=== PATIENT | female | born 1960 | race Caucasian/White ===

== ENCOUNTER 2018-08-18 13:49 | Emergency (ER) | payer OTHER ==
[~2018-08-18] VITALS: Ht 152.4 cm; Wt 84.4 kg
[~2018-08-18 13:49] MED LIST: ASMANEX0.24 G1; CELESTONE0.6 MG/5 M; DOLOGESIC CAPLE1 TAB; HYZAAR 100-121 UDTAB; PHENERGAN25 MG; PREVACID30 MG; PROTONIX40 MG; PROVENTIL S1 ML/5 MG; PROVENTIL2.5 MG/3 M; RELAGESIC TABLE1 TAB; TUSNEL LIQUID178 ML; ZANTAC300 MG; ZYRTEC5 MG
[2018-08-18] MEDS ORDERED: LISINOPRIL-HCT1 EAC1 (14:17)
[2018-08-18] MEDS ORDERED: VENTOLIN HFA18 GM (14:17)
[2018-08-18] MEDS ORDERED: NORVASC10 MG (14:17)
== END 2018-08-18 15:20 | disposition home or self-care (01) ==
LOC: ER 13:49
DX: S40.011A Contusion of right shoulder, initial encounter (principal); W18.39XA Other fall on same level, initial encounter; Y93.89 Activity, other specified; Y92.098 Other place in other non-institutional residence as the place of occurrence of the external cause; Y99.8 Other external cause status

== ENCOUNTER 2021-08-20 12:09 | Outpatient (CLI) | payer OTHER ==
[~2021-08-20 12:09] MED LIST changes: +LISINOPRIL-HCT1 EAC1; +NORVASC10 MG; +VENTOLIN HFA18 GM
== END 2021-08-20 12:19 | disposition home or self-care (01) ==
LOC: MAMO-SONO 12:09
PROVIDERS: ATTEND Specialist
DX: N60.11 Diffuse cystic mastopathy of right breast (principal); N60.12 Diffuse cystic mastopathy of left breast; R92.0 Mammographic microcalcification found on diagnostic imaging of breast; Z12.31 Encounter for screening mammogram for malignant neoplasm of breast

== ENCOUNTER 2022-01-16 08:18 | Outpatient (CLI) | payer OTHER | END 2022-01-16 08:20 | disposition home or self-care (01) | LOC: TOM 08:18 | DX: Z12.11 Encounter for screening for malignant neoplasm of colon (principal) ==

== ENCOUNTER 2022-12-17 14:14 | Emergency (ER) | payer OTHER ==
[~2022-12-17] VITALS: Ht 152.4 cm; Wt 83.9 kg
[2022-12-17] MEDS ORDERED: SYNJARDY 12.5-1 EACH PO (14:31)
[2022-12-17] MEDS ORDERED: CAMBIA50 MG PO (14:31)
[2022-12-17] MEDS ORDERED: PROTONIX20 MG PO (14:31)
[2022-12-17] MEDS ORDERED: ANASTROZOLE1 MG PO (14:32)
[2022-12-17] MEDS ORDERED: IRBESARTAN150 MG PO (14:33)
[2022-12-17] MEDS ORDERED: XOPENEX CO1.25 MG/0. (14:34)
== END 2022-12-17 17:19 | disposition home or self-care (01) ==
LOC: ER 14:14
DX: J45.909 Unspecified asthma, uncomplicated (principal); Z88.8 Allergy status to other drugs, medicaments and biological substances; Z85.3 Personal history of malignant neoplasm of breast

== ENCOUNTER 2022-12-25 18:40 | Emergency (ER) | payer OTHER ==
[~2022-12-25] VITALS: Ht 152.4 cm; Wt 81.6 kg
[~2022-12-25 18:40] MED LIST changes: +ANASTROZOLE1 MG PO; +CAMBIA50 MG PO; +IRBESARTAN150 MG PO; +PROTONIX20 MG PO; +SYNJARDY 12.5-1 EACH PO; +XOPENEX CO1.25 MG/0.
[2022-12-25] MEDS ORDERED: CYCLOBENZAPRINE10 MG PO (21:33)
[2022-12-25] MEDS ORDERED: DICLOFENAC POTA50 MG PO (21:33)
== END 2022-12-25 21:38 | disposition home or self-care (01) ==
LOC: ER 18:40
DX: T14.90XA Injury, unspecified, initial encounter (principal); V49.9XXA Car occupant (driver) (passenger) injured in unspecified traffic accident, initial encounter; Y93.89 Activity, other specified; Y92.413 State road as the place of occurrence of the external cause; Y99.9 Unspecified external cause status; E11.9 Type 2 diabetes mellitus without complications; Z79.84 Long term (current) use of oral hypoglycemic drugs; I10 Essential (primary) hypertension; Z85.3 Personal history of malignant neoplasm of breast; Z88.8 Allergy status to other drugs, medicaments and biological substances; M79.7 Fibromyalgia